=== PATIENT | female | born 1975 | race Caucasian/White ===

== ENCOUNTER 2016-06-29 08:46 | Emergency (ER) ==
[2016-06-29 08:53] VITALS: BP 117/83; TEMP 97; BMI 26.5
--- NOTE | 2016-06-29 08:59 | ED.PDOC ---
General ED Provider: Dr. 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 [ End ]97.0 78 16 97% 117/83 11/19 Time Seen by Physician: 08:58 Mode of Arrival: Walk-In Information Source: Patient Exam Limitations: No limitations Nursing and Triage Documentation Reviewed and Agree: No Review of Systems - Review Of Systems Constitutional: Reports: No symptoms Eyes: Reports: No symptoms Ears, Nose, Mouth, Throat: Reports: Nose pain (tender across bridge of nose mionimal edema mild erythema consisitent with superficial cellulitis) Respiratory: Reports: No symptoms Cardiac: Reports: No symptoms GI: Reports: No symptoms : Reports: No symptoms Musculoskeletal: Reports: No symptoms Skin: Reports: Rash, Other Neurological: Reports: No symptoms Endocrine: Reports: No symptoms Hematologic/Lymphatic: Reports: No symptoms All Other Systems: Other Past Medical History - Past Medical History Previously Healthy: Yes Endocrine: Reports: None Cardiovascular: Reports: None Respiratory: Reports: Pneumonia (10 years ago repeat antibiotics cipro plis bactrim 6-`2 mo ago) Hematological: Reports: None Gastrointestinal: Reports: None Genitourinary: Reports: None Neuro/Psych: Reports: None Musculoskeletal: Reports: None Cancer: Reports: None Last Menstrual Period: 2 weeks ago Other Pertinent Past Medical History: cystic fibrosis, seeing an lobster fisherman - Surgical History General Surgical History: Reports: None, Cholecystectomy, Orthopedic (shoulder) , Other (lasik ) - Family History Family History: Reports: None - Social History Smoking Status: Never smoker Hx Substance Use: No Alcohol Screening: Occasionally Physical Exam - Physical Exam Appearance: Well-appearing, No pain distress, Well-nourished Pain Distress: Mild Eyes: EDILBERTO, EOMI, Conjunctiva clear (nasalc onjuntiva edematous pink) ENT: Ears normal, Nose normal, Oropharynx normal Neck: Supple Respiratory: Airway patent, Breath sounds equal, Respirations nonlabored, Rhonchi, Wheezes Cardiovascular: RRR, Pulses normal, No rub, No murmur GI/: Soft, Nontender, No masses, Bowel sounds normal, No Organomegaly Musculoskeletal: Normal strength, ROM intact, No edema, No calf tenderness Skin: Warm, Dry, Normal color Neurological: Sensation intact Psychiatric: Affect appropriate, Mood appropriate Critical Care Note - Critical Care Note Total Time (mins): 0 Course - Course Vital Signs: Temp Pulse Resp BP Pulse Ox 06/29/16 08:46 97 F L 78 16 117/83 97 Departure - Departure Time of Disposition: 09:14 Disposition: HOME SELF-CARE Discharge Problem: Cellulitis Instructions: Cellulitis (ED) Condition: Good Pt referred to PMD for follow-up: Yes Additional Instructions: Bactrim for infection warm pack two to four times a day until resolved(not too hot) recheck one week pmd sooner if not resolving should be resolved in 2-3 days would hold erythromycin while on Bactrim may contact CF physician about bactrim erythromycin and Plan of Care Prescriptions: Sulfamethoxazole/Trimethoprim [Bactrim Ds Tablet] 1 tab PO Q12HR #20 tablet Allergies/Adverse Reactions: Allergies No Known Allergies Allergy (Verified 06/29/16 08:54) Home Medications: Ambulatory Orders Buspirone HCl 10 mg PO BID 02/25/16 Dextroamphetamine/Amphetamine [Adderall 5 mg Tablet] 5 mg PO DAILY 02/25/16 Erythromycin Base [Erythromycin] 250 mg PO DAILY 02/25/16 Albuterol Sulfate [Proair Hfa] 2 puff IH DIRECTED PRN 06/29/16 Beclomethasone Dipropionate [Qvar] 8.7 gm IH DAILY 06/29/16 Escitalopram Oxalate [Lexapro] 10 mg PO DAILY 06/29/16 Mometasone/Formoterol [Dulera 200 Mcg/5 Mcg Inhaler] 8.8 gm IH DAILY 06/29/16 Montelukast Sodium [Singulair] 10 mg PO BEDTIME 06/29/16 Olopatadine HCl 30.5 gm NS DAILY 06/29/16 Sulfamethoxazole/Trimethoprim [Bactrim Ds Tablet] 1 tab PO Q12HR #20 tablet
== END 2016-06-29 09:39 | disposition home or self-care (01) ==
LOC: ED 08:46
DX: J34.0 Abscess, furuncle and carbuncle of nose (principal)
CPT/HCPCS: 99282

== ENCOUNTER 2016-09-09 20:52 | Emergency (ER) ==
[2016-09-09 21:03] VITALS: BP 122/77; TEMP 98.1; BMI 25.4
--- NOTE | 2016-09-09 21:13 | ED.PDOC ---
General ED Provider: Dr. GEORGE HARDING Chief Complaint: Face Laceration Stated Complaint: while lifting a bucket of the detergent, it fell on her face and had injury. Time Seen by Physician: 21:11 Mode of Arrival: Walk-In Information Source: Patient Primary Care Provider: JOSE BARCENAS Nursing and Triage Documentation Reviewed and Agree: Yes Skin Complaint Exam - Laceration/Head/Facial Complaint/Exam Location of Injury: Eyebrow Mechanism of Injury: Laceration Symptoms Are: Still present Initial Severity: Mild Current Severity: Mild Aggravating: Movement Alleviating: None Associated Signs and Symptoms: Denies: Fever, Chills, Erythema, Numbness, Tingling Differential Diagnoses: Laceration Review of Systems - Review Of Systems Constitutional: Reports: No symptoms Eyes: Reports: No symptoms Ears, Nose, Mouth, Throat: Reports: No symptoms Respiratory: Reports: No symptoms Cardiac: Reports: No symptoms GI: Reports: No symptoms : Reports: No symptoms Musculoskeletal: Reports: No symptoms Skin: Reports: No symptoms Neurological: Reports: No symptoms Endocrine: Reports: No symptoms Hematologic/Lymphatic: Reports: No symptoms All Other Systems: Reviewed and Negative Past Medical History - Past Medical History Previously Healthy: Yes Endocrine: Reports: None Cardiovascular: Reports: None Respiratory: Reports: Pneumonia (10 years ago repeat antibiotics cipro plis bactrim 6-`2 mo ago) Hematological: Reports: None Gastrointestinal: Reports: None Genitourinary: Reports: None Neuro/Psych: Reports: None Musculoskeletal: Reports: None Cancer: Reports: None Last Menstrual Period: 09/09/16 Other Pertinent Past Medical History: cystic fibrosis, 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 - Surgical History General Surgical History: Reports: None, Cholecystectomy, Orthopedic (shoulder) , Other (lasik ) - Family History Family History: Reports: None - Social History Smoking Status: Never smoker Hx Substance Use: No Alcohol Screening: Occasionally Physical Exam - Physical Exam Appearance: Well-appearing, No pain distress, Well-nourished Eyes: EDILBERTO, EOMI, Conjunctiva clear ENT: Ears normal, Nose normal, Oropharynx normal Respiratory: Airway patent, Breath sounds clear, Breath sounds equal, Respirations nonlabored Cardiovascular: RRR, Pulses normal, No rub, No murmur GI/: Soft, Nontender, No masses, Bowel sounds normal, No Organomegaly Musculoskeletal: Normal strength, ROM intact, No edema, No calf tenderness Skin: Warm, Dry, Normal color Neurological: Sensation intact, Motor intact, Reflexes intact, Cranial nerves intact, Alert, Oriented Psychiatric: Affect appropriate, Mood appropriate Procedures - Laceration/Wound Repair No standard instances Wound Description: Linear Wound Length (cm): 1.3 cm Wound Explored: Clean Wound Irrigated: No Wound Repaired With: Dermabond Critical Care Note - Critical Care Note Total Time (mins): 0 Course - Course Vital Signs: Temp Pulse Resp BP Pulse Ox 09/09/16 20:52 98.1 F 77 16 122/77 96 Departure - Departure Time of Disposition: 21:15 Disposition: HOME SELF-CARE Discharge Problem: Facial laceration Instructions: Laceration (ED) Condition: Stable Pt referred to PMD for follow-up: No Additional Instructions: tylenol prn Do not touch the area, if redness or swelling needs evaluation Allergies/Adverse Reactions: Allergies No Known Allergies Allergy (Verified 09/09/16 20:56) Home Medications: Ambulatory Orders Buspirone HCl 20 mg PO BID 02/25/16 Dextroamphetamine/Amphetamine [Adderall 5 mg Tablet] 10 mg PO DAILY 02/25/16 Erythromycin Base [Erythromycin] 250 mg PO DAILY 02/25/16 Albuterol Sulfate [Proair Hfa] 2 puff IH DIRECTED PRN 06/29/16 Beclomethasone Dipropionate [Qvar] 8.7 gm IH DAILY 06/29/16 Escitalopram Oxalate [Lexapro] 20 mg PO DAILY 06/29/16 Mometasone/Formoterol [Dulera 200 Mcg/5 Mcg Inhaler] 8.8 gm IH DAILY 06/29/16 Montelukast Sodium [Singulair] 10 mg PO BEDTIME 06/29/16 Disposition Discussed With: Patient
== END 2016-09-09 21:25 | disposition home or self-care (01) ==
LOC: ED 20:52
DX: S01.111A Laceration without foreign body of right eyelid and periocular area, initial encounter (principal); W22.8XXA Striking against or struck by other objects, initial encounter; Y93.E9 Activity, other interior property and clothing maintenance
CPT/HCPCS: 99283